=== PATIENT | female | born 1955 | race Caucasian/White ===

== ENCOUNTER 2018-09-11 09:30 | Inpatient (IN) | payer OTHER ==
[~2018-09-11] VITALS: Ht 160 cm; Wt 72.1 kg
[2018-09-11] MEDS ORDERED: [UNRECOGNIZED DRUG - CODE] PO (10:08)
[2018-09-11] MEDS ORDERED: TESSALON PERLE100 MG PO (10:09)
[2018-09-18] MEDS ORDERED: GUAIFENESIN-DM1 EAC1 PO (09:47)
[2018-09-19] MEDS ORDERED: HYOSCYAMINE0.125 M1 SL (07:42)
[2018-09-19] MEDS ORDERED: NEURONTIN300 MG PO (07:42)
== END 2018-09-19 11:26 | disposition home or self-care (01) | DRG 330 ==
LOC: SURH 09:30 → SURG 09-16 06:00 → O/R 09-16 06:00 → SURG 09-16 11:01
PROVIDERS: ADMIT Surgery
PROC: 0DJD8ZZ Inspection of Lower Intestinal Tract, Via Natural or Artificial Opening Endoscopic (ICD-10-PCS; 2018-09-16)
PROC: 0DTN4ZZ Resection of Sigmoid Colon, Percutaneous Endoscopic Approach (ICD-10-PCS; principal; 2018-09-16 11:00)
PROC: B246ZZZ Ultrasonography of Right and Left Heart (ICD-10-PCS; 2018-09-17)
DX: K57.32 Diverticulitis of large intestine without perforation or abscess without bleeding (principal); K56.690 Other partial intestinal obstruction; I11.9 Hypertensive heart disease without heart failure; I08.1 Rheumatic disorders of both mitral and tricuspid valves

== ENCOUNTER 2019-11-30 06:16 | Day surgery (SDC) | payer OTHER ==
[~2019-11-30 06:16] MED LIST: GUAIFENESIN-DM1 EAC1 PO; HYOSCYAMINE0.125 M1 SL; NEURONTIN300 MG PO; TESSALON PERLE100 MG PO; [UNRECOGNIZED DRUG - CODE] PO
== END 2019-11-30 12:02 | disposition home or self-care (01) ==
LOC: AMB-ENDOS 06:16
PROVIDERS: ATTEND Surgery
DX: K62.89 Other specified diseases of anus and rectum (principal); K57.30 Diverticulosis of large intestine without perforation or abscess without bleeding